=== PATIENT | male | born 1955 | race Caucasian/White ===

== ENCOUNTER 2020-09-22 03:57 | Emergency (ER) | payer OTHER, SELFPAY ==
[~2020-09-22] VITALS: Ht 182.9 cm; Wt 97.5 kg
[~2020-09-22 03:57] MED LIST: SYN75 PO
[2020-09-22 04:00] VITALS: BP_SYST 103
[2020-09-22] MEDS ORDERED: ADENOSINE 6MG/2ML VIAL IVP ONE (04:15)
[2020-09-22] MEDS ORDERED: ADENOSINE 6MG/2ML VIAL ONE (04:17)
[2020-09-22 04:38] LABS: BASOPHILS # (AUTO) 0.1 K/uL (0.0-0.2); EOSINOPHILS # (AUTO) 0.2 K/uL (0.0-0.4); EOSINOPHILS % (AUTO) 3.8 % (0.0-4.0); HEMATOCRIT 40.2 % (36-54); HEMOGLOBIN 13.7 g/dL (14.0-18.0); LYMPHOCYTES # (AUTO) 3.1 K/uL (1.0-5.5); LYMPHOCYTES % (AUTO) 48.3 % (20.5-51.5); MEAN CORPUSCULAR HEMOGLOBIN 32 pg (27-31); MEAN CORPUSCULAR HGB CONC 34 % (32-36); MEAN CORPUSCULAR VOLUME 95 fL (79.0-98.0); MONOCYTES # (AUTO) 0.5 K/uL (0.0-1.0); MONOCYTES % (AUTO) 8.4 % (1.7-9.3); NEUTROPHILS # (AUTO) 2.4 K/uL (1.8-7.7); NEUTROPHILS % (AUTO) 37.5 % (40.0-70.0); PLATELET COUNT (AUTO) 229 K/uL (130-430); RED BLOOD CELL COUNT(AUTO) 4.23 MIL/uL (4.2-6.2); RED CELL DISTRIBUTION WIDTH 13.7 % (9.0-15.0); WHITE BLOOD COUNT (AUTO) 6.5 K/uL (4.8-10.8)
[2020-09-22 04:42] LABS: ANION GAP 10 (5-15); CALCIUM 8.3 mg/dL (8.4-11.0); CHLORIDE 106 mmol/L (98-107); CREATININE 1.01 mg/dL (0.55-1.30); GLUCOSE 125 mg/dL (70-99); SODIUM SERUM 141 mmol/L (136-145); UREA NITROGEN, BLOOD 16 mg/dL (8-21)
[2020-09-22 04:50] LABS: ALANINE AMINOTRANSFERASE 26 U/L (12-78); ALBUMIN 3.3 g/dL (3.4-4.8); ASPARTATE AMINOTRANSFERASE 23 U/L (10-37); TOTAL BILIRUBIN 0.2 mg/dL (0.0-1.0)
[2020-09-22 04:53] LABS: GFR AFRICAN AMERICAN 95 mL/min (>90)
[2020-09-22 05:10] LABS: THYROID STIMULATING HORMONE 5.96 uIu/mL (0.36-3.74)
[2020-09-22 05:52] VITALS: BP_SYST 103
== END 2020-09-22 05:52 | disposition home or self-care (01) ==
LOC: SED 03:57
DX: I47.1 Supraventricular tachycardia (principal); E03.9 Hypothyroidism, unspecified; Z88.6 Allergy status to analgesic agent; Z20.822 Contact with and (suspected) exposure to COVID-19
CPT/HCPCS: 36415; 71045; 80053; 84443; 84484; 85025; 87426; 93005; 96374; 99285; J0153

== ENCOUNTER 2020-10-21 00:36 | Emergency (ER) | payer OTHER ==
[~2020-10-21] VITALS: Ht 182.9 cm; Wt 98.9 kg
[2020-10-21 00:36] VITALS: BP_SYST 119
--- NOTE | 2020-10-21 00:36 | NUR ---
Placed in room 7 . Placed on panel monitor, blood pressure machine and pulse oximeter. To gown for exam. Side rails up.
--- NOTE | 2020-10-21 00:36 | NUR ---
RN AT BEDSIDE TO COMPLETE EKG. REPORT GIVEN TO
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
--- NOTE | 2020-10-21 00:42 | NUR ---
# 20 gauge angiocath placed to LAC. Use of asceptic technique. Opsite placed over site. Blood return noted. Blood for lab drawn from site. Flushed with 10 cc of normal saline. No evidence of infiltration noted. Patient tolerated well.
--- NOTE | 2020-10-21 00:43 | NUR ---
ER Dr. Caballero at bedside examining patient.
[2020-10-21] MEDS ORDERED: ADENOSINE 6MG/2ML VIAL ONE (00:48)
--- NOTE | 2020-10-21 00:50 | NUR ---
6MG IVP OF ADENOSINE GIVEN. PT CONVERTED TO NORMAL SINUS RHYTHM PER MD. POST EKG COMPLETED AND GIVEN TO MD. PT VSS.
[2020-10-21] MEDS ORDERED: ADENOSINE 6MG/2ML VIAL IVP ONE (01:00)
[2020-10-21] MEDS ORDERED: NACL 0.9% 1,000 ML IV ONE (01:00)
--- NOTE | 2020-10-21 01:15 | NUR ---
MD AT BEDSIDE SPEAKING WITH PATIENT.
--- NOTE | 2020-10-21 01:16 | NUR ---
PT USING BEDSIDE URINAL TO GIVE URINAL SAMPLE.
[2020-10-21 01:19] LABS: ANION GAP 8 (5-15); CALCIUM 8.2 mg/dL (8.4-11.0); CHLORIDE 105 mmol/L (98-107); CREATININE 0.86 mg/dL (0.55-1.30); GLUCOSE 119 mg/dL (70-99); POTASSIUM 3.7 mmol/L (3.5-5.1); SODIUM SERUM 141 mmol/L (136-145); UREA NITROGEN, BLOOD 20 mg/dL (8-21)
[2020-10-21 01:20] LABS: BASOPHILS # (AUTO) 0.1 K/uL (0.0-0.2); BASOPHILS % (AUTO) 1.2 % (0.0-2.0); EOSINOPHILS # (AUTO) 0.3 K/uL (0.0-0.4); EOSINOPHILS % (AUTO) 4.6 % (0.0-4.0); HEMATOCRIT 39.8 % (36-54); HEMOGLOBIN 13.5 g/dL (14.0-18.0); LYMPHOCYTES # (AUTO) 3.6 K/uL (1.0-5.5); LYMPHOCYTES % (AUTO) 48.8 % (20.5-51.5); MEAN CORPUSCULAR HEMOGLOBIN 33 pg (27-31); MEAN CORPUSCULAR HGB CONC 34 % (32-36); MEAN CORPUSCULAR VOLUME 97 fL (79.0-98.0); MONOCYTES # (AUTO) 0.6 K/uL (0.0-1.0); MONOCYTES % (AUTO) 7.9 % (1.7-9.3); NEUTROPHILS # (AUTO) 2.7 K/uL (1.8-7.7); NEUTROPHILS % (AUTO) 37.5 % (40.0-70.0); PLATELET COUNT (AUTO) 232 K/uL (130-430); RED BLOOD CELL COUNT(AUTO) 4.12 MIL/uL (4.2-6.2); RED CELL DISTRIBUTION WIDTH 13.7 % (9.0-15.0); WHITE BLOOD COUNT (AUTO) 7.3 K/uL (4.8-10.8)
[2020-10-21 01:35] LABS: BILIRUBIN,URINE NEGATIVE (NEGATIVE); BLOOD, URINE NEGATIVE (NEGATIVE); CLARITY/URINE CLEAR (CLEAR); GLUCOSE,URINE NEGATIVE (NEGATIVE); KETONES,URINE NEGATIVE (NEGATIVE); LEUKOCYTE ESTERASE ,URINE NEGATIVE (NEGATIVE); NITRITE, URINE NEGATIVE (NEGATIVE); PH,URINE 5.5 (5.0-8.0); PROTEIN URINE NEGATIVE (NEGATIVE); UROBILINOGEN,URINE 0.2 (0.2-1.0)
[2020-10-21 01:36] LABS: COLOR,URINE STRAW (YELLOW)
[2020-10-21 01:37] LABS: ALANINE AMINOTRANSFERASE 25 U/L (12-78); ALBUMIN 3.6 g/dL (3.4-4.8); ASPARTATE AMINOTRANSFERASE 27 U/L (10-37); TOTAL BILIRUBIN 0.2 mg/dL (0.0-1.0)
[2020-10-21 01:39] LABS: GFR AFRICAN AMERICAN 114 mL/min (>90)
[2020-10-21 01:46] LABS: BARBITURATE, URINE NEGATIVE (NEG <=200); BENZODIAZEPINE, URINE NEGATIVE (NEG <=150); CANNABINOID, URINE NEGATIVE (NEG <=50); COCAINE, URINE NEGATIVE (NEG <=150); METHAMPHETAMINES SCREEN,URINE NEGATIVE (NEG <=500); OPIATE, URINE NEGATIVE (NEG <=100); PHENCYCLIDINE SCREEN,URINE NEGATIVE (NEG <=25); UR TRICYCLIC ANTIDEPRESSANTS NEGATIVE (NEG <=300); URINE AMPHETAMINE NEGATIVE (NEG <=500); URINE METHADONE NEGATIVE (NEG <=200); URINE OXYCODONE SCREEN NEGATIVE (NEG <=100); URINE PROPOXYPHENE SCREEN NEGATIVE (NEG <=300)
--- NOTE | 2020-10-21 02:02 | NUR ---
MD RICHARDSON AT BEDSIDE SPEAKING WITH PATIENT.
[2020-10-21 02:52] VITALS: BP_SYST 126
== END 2020-10-21 02:52 | disposition home or self-care (01) ==
LOC: SED 00:36
DX: I47.1 Supraventricular tachycardia (principal); E07.9 Disorder of thyroid, unspecified; Z88.6 Allergy status to analgesic agent
CPT/HCPCS: 36415; 80053; 80307; 81003; 84443; 84484; 85025; 93005; 96361; 96374; 99291; G0482; J0153; J7030